=== PATIENT | female | born 1985 | race Caucasian/White ===

== ENCOUNTER 2020-01-15 13:42 | Emergency (ER) | payer MEDICAID, SELFPAY ==
[2020-01-15 13:44] VITALS: BP 142/76; PULSE 80; RESP 21; TEMP 36.9; O2SAT 100; BMI 31.7
--- NOTE | 2020-01-15 14:12 | EKG12_ITS ---
Test Reason : Blood Pressure : / mmHG Vent. Rate : 081 BPM Atrial Rate : 081 BPM P-R Int : 140 ms QRS Dur : 090 ms QT Int : 350 ms P-R-T Axes : 056 080 054 degrees QTc Int : 406 ms Normal sinus rhythm Normal ECG Confirmed by MAGALIS BRYSON, GARRICK ([id number]), primer expeditor and drier JASON LUNDBERG ([id number]) on 01/19/2020 2:18:27 PM Referred By: TOÑITO Confirmed By:ED BLANCAS MD
--- NOTE | 2020-01-15 14:15 | RAD_ITS ---
STUDY: X-RAY CHEST REASON FOR EXAM: Female, 34 years old. Chest pain, cough TECHNIQUE: Single AP portable view of the chest. COMPARISON: None. FINDINGS: EKG electrodes are seen. The lungs are clear and expanded. There is no demonstrated pleural abnormality. Normal size heart. Normal mediastinum and francesca. Normal visualized pulmonary arteries. Normal visualized aortic arch and descending thoracic aorta. Mild dextroscoliosis. Normal visualized ribs, clavicles, and shoulders. There is no demonstrated abnormality of the visualized soft tissue structures of the upper abdomen. RAD/Chest 1 View (Portable) IMPRESSION: No acute abnormality is seen. Electronically Signed: Thad Diaz, at 14:33 EST , Service support ,
--- NOTE | 2020-01-15 14:18 | ED.VIS.GEN ---
History of Present Illness Chief Complaint: Chest Pain Informant: Patient Onset: Days Maximum Severity: Mild Narrative: The patient has had a harsh generally dry nonproductive cough for a few days the cough is associated with sharp stabbing chest pain, she went to some type of an urgent care center for the coughing and she was sent to the emergency department. She is able to eat and drink her bowel and bladder habits are normal, She has no history of [place] PE COPD, she does report she just found out she has hepatitis C and she is trying to establish care with her insurance plan she otherwise her health has been good she does report she works in a environment that is quite [place] she occasionally smokes and vapes and she is trying to quit both those habits she does not experience chest pain when she exerts herself in any way Past Medical History - Allergies and Home Meds Allergies/Adverse Reactions: Allergies No Known Allergies Allergy (Verified 01/15/20 13:43) Primary Care Physician: Eulogio Roldan DO [Primary Care Provider] - Past Medical History: - Smoking Status: Current every day smoker Review of Systems ROS: - As above General: Denies: Chills, Fever, Sweats Eyes: Denies: Visual changes - bilaterally, Diplopia ENT: Denies: Rhinorrhea, Sore throat Cardiovascular: Reports: Chest pain. Denies: Palpitations Respiratory: Reports: Cough. Denies: Dyspnea, Dyspnea on exertion Gastrointestinal: Denies: Abdominal pain, Nausea, Vomiting, Diarrhea, Melena, Hematochezia Genitourinary: Denies: Dysuria, Hematuria, Frequency Musculoskeletal: Denies: Back pain, Extremity Pain Skin: Denies: Rash, Wounds Neurological: Denies: Headache, Weakness, Numbness Physical Exam Vital Signs/Narrative: Vital Signs Temp Pulse Resp BP Pulse Ox 01/15/20 13:44 98.5 F 80 21 H 142/76 H 100 General: Well nourished, Well developed, No Acute Distress, - - He has a harsh dry cough here she is in no distress her vital signs within normal range pulse ox is normal Head: Normocephalic, Atraumatic Eyes: Perrl, EOMI ENT: Moist mucous membranes, No rhinorrhea Neck: Supple, Nontender Cardiovascular: Regular rate, Regular rhythm, No murmurs Respiratory: No distress, CTA bilaterally, Chest nontender Abdomen: Soft, Nontender, Nondistended, Normal bowel sounds Back: Nontender, Normal Inspection Extremities: Nontender, No edema Skin: Normal color, No rash Neurological: Alert, Oriented x3, Cranial nerves II-XII grossly intact, Normal Strength, Normal Sensation Psychological: Normal affect, Normal Mood Diagnostic/Tx/Re-eval - Medical Decision Making Given all the above in her complaints screening labs were obtained EKG shows a sinus rhythm no acute injury pattern apparent all intervals are within normal range Patient screening ED evaluation labs chest x-ray are unremarkable she is resting comfortably bed see the aerosol discussed inpatient versus outpatient management she is comfortable with discharge home she understands the differential, she will be started on Proventil Mucinex Flonase and should follow-up with her outpatient providers for further management Home stable Final impression URI with harsh cough and intermittent stabbing chest pain ED Disposition - Plan for ED Patient: Diagnosis: URI (upper respiratory infection) Instructions: CHEST PAIN, Uncertain Cause, Pleurisy, URI, Viral w/ Wheezing (Adult) Prescriptions: Fluticasone Propionate [Flonase Allergy Relief] 15.8 ml NS BID #1 spray.susp Prescription Printed Naproxen [Naprosyn] 500 mg PO BID PRN #20 tab Prescription Printed Albuterol Inhaler [Ventolin Hfa] 1 - 2 puff INHALATION Q4H PRN PRN #1 inhaler PRN Reason: Wheezing Prescription Printed Referrals: Eulogio Roldan DO [Primary Care Provider] -
[2020-01-15 14:27] VITALS: O2SAT 98
[2020-01-15] MEDS: Aspirin 81 MG TAB.CHEW 324 MG PO (14:28)
[2020-01-15] MEDS: 0.9% Normal Saline 1,000 ML 1000 ML IV (14:28)
[2020-01-15 14:45] VITALS: PULSE 101; RESP 20
[2020-01-15] MEDS: Ipratropium/Albuterol Sulfate 3 ML AMPUL.NEB INHALATION (14:45)
[2020-01-15 14:50] LABS: Absolute Lymphocyte Count 1.34 X10^3/uL (0.83-4.51); Absolute Neutrophil Count 4.2 X10^3/uL (2.0-7.7); Basophil# 0.02 X10^3/uL; Basophil% 0.3 % (0-1); Eosinophil# 0.06 X10^3/uL; Hematocrit 38.8 % (37-47); Lymphocyte # 1.34 X10^3/ul (4.0); Lymphocyte % 22.3 % (19-41); Mean Corp Hgb Conc 33.5 g/dL (32-36); Mean Corpuscular Volume 89.4 fL (81-99); Mean Platelet Vol. 10.9 fl (6.2-12.0); Monocyte# 0.42 X10^3/uL; NRBC Flagged by Analyzer 0 % (0-5); Neutrophil # 4.15 X10^3/uL (2.7-7.7); Neutrophil % 69.1 % (47-70); Platelet Count 164 K/mm3 (150-450); RBC Distribution Width CV 12.3 % (11.6-14.6); RBC Distribution Width SD 40.4 fl (35.1-43.9); Red Blood Count 4.34 M/mm3 (4.2-5.4)
[2020-01-15 15:08] LABS: Anion Gap 4 (5-15); BUN 10 mg/dL (7-18); BUN/Creat Ratio 11.8 RATIO (10-20); Calcium,Total 9.7 mg/dL (8.5-10.1); Chloride 110 mmol/L (98-107); Creatinine, Serum 0.84 mg/dL (0.55-1.02); EST Glomerular Filtration Rate 82 mL/min (>60); Est Glom Filt Rate - Afr Amer 99 mL/min (>60); Estimated Creatinine Clearance 89.18 ml/min; Glucose 77 mg/dL (74-106); Potassium 4.4 mmol/L (3.5-5.1); Sodium Level 141 mmol/L (136-145)
[2020-01-15 15:54] VITALS: BP 118/66; PULSE 80; RESP 18; O2SAT 99
== END 2020-01-15 15:56 | disposition home or self-care (01) ==
LOC: ED 14:33
PROVIDERS: Emergency Provider Emergency Medicine; PCP Family Medicine
DX: J06.9 Acute upper respiratory infection, unspecified (principal); F17.200 Nicotine dependence, unspecified, uncomplicated
CPT/HCPCS: 71045; 80048; 84484; 85025; 93005; 94640; 96360; 99284; J7030

== ENCOUNTER 2021-08-11 18:44 | Emergency (ER) | payer MEDICAID, SELFPAY ==
[2021-08-11 18:45] VITALS: BP 122/78; PULSE 77; RESP 16; TEMP 36.9; O2SAT 99; BMI 28.4
--- NOTE | 2021-08-11 20:01 | ED.RN ---
ATTEMPTED TO CALL PT FOR LABS. UNABLE TO LOCATE PT
== END 2021-08-11 19:30 | disposition left against medical advice (07) ==
LOC: ED 20:19
PROVIDERS: PCP Family Medicine
DX: R69 Illness, unspecified (principal); Z53.21 Procedure and treatment not carried out due to patient leaving prior to being seen by health care provider

== ENCOUNTER → 2025-07-22 | Outpatient (CLI) | payer BC, SELFPAY ==
--- NOTE | 2025-07-22 16:38 | RAD_ITS ---
PROCEDURE: CERV SPINE 2 OR 3 VIEWS 07/22/2025 REASON FOR EXAM: SPONDYLOSIS WITHOUT MYELOPATHY OR RADICULOPATHY, CERVICAL REGION TECHNIQUE: CERV SPINE 2 OR 3 VIEWS FINDINGS: No evidence of acute fracture or dislocation. Vertebral body heights are maintained. Up to mild disc space narrowing. Straightening of the normal cervical lordosis which may be positional or due to spasm. RAD/Cerv Spine 2 or 3 Views IMPRESSION: Up to mild spondylosis. If persistent pain MRI can be considered. Disclaimer: Reading Location: [id number]
== END | disposition home or self-care (01) ==
LOC: RAD 16:37
PROVIDERS: PCP Family Medicine; Referring Provider Anesthesiology Pain Medicine; Visit Provider Anesthesiology Pain Medicine
DX: M47.812 Spondylosis without myelopathy or radiculopathy, cervical region (principal)
CPT/HCPCS: 72040